=== PATIENT | male | born 1955 | race Caucasian/White ===

== ENCOUNTER 2019-04-04 08:26 | Day surgery (SDC) | payer MEDICARE, OTHER ==
[~2019-04-04] VITALS: Ht 170.2 cm; Wt 74.8 kg
[~2019-04-04 08:26] MED LIST: AMARYL4 MG PO; ASPIRIN EC81 MG PO; GLUCOPHAGE XR750 MG PO; GLUCOPHAGE1000 MG PO; GLUCOSAMINE-CH1 EA22 PO; JANUVIA100 MG PO; JANUVIA50 MG PO; LIPITOR20 MG GT; LISINOPRIL20 MG PO; MOEXIPRIL HCL15 MG PO; MOEXIPRIL HCTZ PO; MULTIVITAMINS1 EAC7 PO; NORVASC10 MG PO; PLETAL100 MG PO; PRILOSEC20 MG PO; ZOCOR40 MG PO
--- NOTE | 2019-04-04 09:47 | NUR ---
04/04/19 0947 Edith Jorge 0945 PATIENT ARRIVES TO PACU AWAKE. RESP EVEN AND UNLABORED. ROOM AIR SATS >94%. PATIENT REPOSITIONS SELF TO BACK.
--- NOTE | 2019-04-05 10:35 | OR ---
[facility] [address] [place], [place] [address] Signed DATE OF OPERATION: 04/04/2019 SURGEON: Leti Raygoza MD PREOPERATIVE DIAGNOSES: 1. Occasional gastroesophageal reflux symptoms with cervical dysphagia. 2. History of multiple hyperplastic polyps (last 2013). POSTOPERATIVE DIAGNOSIS: Hiatal hernia without obvious esophagitis. No sign of stricture. PROCEDURE: Esophagogastroduodenoscopy with biopsies. ANESTHESIA: Intravenous sedation, fentanyl 100 mcg, Versed 3 mg. INDICATION: A 63-year-old white man, a patient of Dr. Padron and well known to me from the past. He has undergone colonoscopy in the past including in 2013, at which time, he had multiple hyperplastic polyps. He has never had adenomatous polyps. He has no family history of colon cancer. He does, however, have occasional reflux symptoms and some cervical dysphagia on occasion. No hematemesis, however. He is admitted to undergo upper endoscopy on that basis. The risks of bleeding, infection, and perforation were reviewed with him. He understands and wished to proceed. FINDINGS: The stomach and duodenum were essentially normal, though he does have a moderate-sized hiatal hernia. Strangely, there was no sign of actual esophagitis. Biopsies were obtained nevertheless. The midesophagus did have a somewhat corrugated appearance, but not terribly typical of the eosinophilic esophagitis. Biopsies are pending. CLOtest was negative 15 minutes post procedure. DESCRIPTION OF PROCEDURE: The patient was brought to the endoscopy suite and given topical Hurricaine spray hypopharyngeal anesthesia and placed in lateral decubitus position. He was given intravenous sedation to the point of slurred speech and nystagmus with full cardiopulmonary monitoring. Electronically Signed By: LETI RAYGOZA MD 04/05/19 1035 PATIENT NAME: TEMITOPE WRIGHT OPERATIVE REPORT DATE OF : 51 REPORT #: [id number] PHYSICIAN: LETI RAYGOZA MD PCP: CLYDE PADRON MD REPORT IS CONFIDENTIAL AND NOT TO BE RELEASED WITHOUT AUTHORIZATION [facility] [address] [place], [place] [address] Signed A bite block was placed. An Olympus video upper endoscope passed in the hypopharynx. The vocal cords appeared normal, though the area in question was somewhat narrow and a bit congested. The scope was then advanced to the esophagus throughout its length and appeared normal. Scope was passed to the stomach, which was insufflated with air. Rugal folds were normal as was the antrum. Pylorus was normal. Scope was passed through into the duodenum, which was normal. Biopsies were taken of the duodenum and the scope withdrawn to the antrum where biopsies were also taken for both MUNIRA and pathologic testing. Retroflexed view undertaken showed a hiatal hernia, moderate in size. The scope was straightened, withdrawn, and biopsies then taken of distal esophageal mucosa after narrow band imaging showed no sign of abnormality particularly. The scope was then withdrawn to the mid esophagus where similar biopsies were obtained and there was a somewhat corrugated appearance and although not diagnostic of the eosinophilic esophagitis, certainly a consideration given his symptoms. Careful withdrawal of scope showed no other abnormalities. Scope was removed. The patient was taken to recovery room in good condition. CONCLUDING DIAGNOSIS: Hiatal hernia without associated esophagitis, currently symptom free. PLAN: Expectant management as regards to his hiatal hernia at this time. If he should develop recurrent symptoms of cervical dysphagia or heartburn symptoms, consideration will be made for medical treatment. As regards to colonoscopy, repeat colonoscopy at 10-year interval (2023) is anticipated. Leti Raygoza MD JM/MODL /[id number] cc: Clyde Padron MD Copies: CLYDE PADRON MD Electronically Signed By: LETI RAYGOZA MD 04/05/19 1035 PATIENT NAME: TEMITOPE WRIGHT OPERATIVE REPORT DATE OF : 51 REPORT #: [id number] PHYSICIAN: LETI RAYGOZA MD PCP: CLYDE PADRON MD REPORT IS CONFIDENTIAL AND NOT TO BE RELEASED WITHOUT AUTHORIZATION [facility] [address] [facility] [place] [address] Signed ~ Electronically Signed By: LETI RAYGOZA MD 04/05/19 1035 PATIENT NAME: TEMITOPE WRIGHT OPERATIVE REPORT DATE OF : 51 REPORT #: [id number] PHYSICIAN: LETI RAYGOZA MD PCP: CLYDE PADRON MD REPORT IS CONFIDENTIAL AND NOT TO BE RELEASED WITHOUT AUTHORIZATION
--- NOTE | 2019-04-08 10:04 | PATH ---
[facility] [address] [place], [place] [address] Signed SPECIMEN(S): A DUODENAL NOS SPECIMEN(S): B ANTRUM/ANTRAL SPECIMEN(S): C LOWER ESOPHAGUS SPECIMEN(S): D MIDDLE ESOPHAGUS SPECIMEN SOURCE: A. DUODENAL NOS B. ANTRUM/ANTRAL C. LOWER ESOPHAGUS D. MIDDLE ESOPHAGUS CLINICAL HISTORY: Reflux. Postop: Hiatal hernia. MICROSCOPIC DESCRIPTION: Histologic sections of all submitted blocks are examined by light microscopy. These findings, together with the gross examination, support the pathologic diagnosis. FINAL PATHOLOGIC DIAGNOSIS: A. Duodenum, biopsy: - Duodenal mucosa with increased lamina propria chronic inflammation, pyloric gland hyperplasia, and reactive epithelial changes, consistent with duodenitis. - No Helicobacter organisms identified on HE stain. - Negative for dysplasia or malignancy. B. Stomach, antrum, biopsy: - Antral mucosa with mild chronic, inactive gastritis. - No Helicobacter organisms, see Comment. - Oxyntic mucosa with no histopathologic abnormality. C. Esophagus, lower, biopsy: - Squamous mucosa with reactive cellular changes, consistent with mild reflux esophagitis, see comment. - Negative for intestinal metaplasia, dysplasia, or malignancy. D. Esophagus, middle, biopsy: - Squamous mucosa with reactive cellular changes, consistent with mild reflux esophagitis, see comment. - Negative for intestinal metaplasia, dysplasia, or malignancy. COMMENT: An immunohistochemical stain (with appropriately staining controls) for H. PATIENT NAME: TEMITOPE WRIGHT PATHOLOGY DATE OF : 51 REPORT #: [id number] PHYSICIAN: [facility]O [facility] PCP: LEODAN JULIEN MD REPORT IS CONFIDENTIAL AND NOT TO BE RELEASED WITHOUT AUTHORIZATION [facility] [address] [place], [place] [address] Signed pylori was performed on the antral biopsy (specimen B) and is negative for Helicobacter organisms. Sections of the lower and middle esophageal biopsies are similar and demonstrate squamous mucosa with reactive cellular changes, few scattered intraepithelial lymphocytes, mucosal capillary dilation, and focal areas of basal cell hyperplasia. These findings can be seen in mild reflux esophagitis. No intestinal metaplasia, dysplasia, or malignancy is seen. NAL:cml:C2NR GROSS DESCRIPTION: Four specimens are received in four containers, labeled "BP." A. The specimen, labeled "BP, duodenal NOS," is received in formalin and consists of two fuentes-white soft tissue fragments ranging from 0.1-0.2 cm in greatest dimension. The specimen is entirely submitted in cassette (A1). B. The specimen, labeled "BP, antrum," is received in formalin and consists of two fuentes-white soft tissue fragments ranging from 0.1-0.2 cm in greatest dimension. The specimen is entirely submitted in cassette (B1). C. The specimen, labeled "BP, lower esophagus," is received in formalin and consists of three fuentes-white soft tissue fragments ranging from 0.1-0.2 cm in greatest dimension. The specimen is entirely submitted in cassette (C1). D. The specimen, labeled "BP, middle esophagus," is received in formalin and consists of two fuentes-white soft tissue fragments each measuring 0.2 cm in greatest dimension. The specimen is entirely submitted in cassette (D1). AR (under the direct supervision of a pathologist) The Gross Description was prepared using a voice recognition system. The report was reviewed for accuracy; however, sound-alike word errors, addition and/or deletions may occur. If there is any question about this report, please contact Client Services. ADDITIONAL NOTES: Immunohistochemical and/or in situ hybridization studies were performed on this case with the appropriate positive controls that react as expected. This test was developed and its performance characteristics determined by [facility]. It has not been cleared or approved by the U.S. Food and Drug Administration. The FDA has determined that such clearance or approval is not PATIENT NAME: TEMITOPE WRIGHT PATHOLOGY DATE OF : 51 REPORT #: [id number] PHYSICIAN: [facility] PATH[facility] PCP: LEODAN JULIEN MD REPORT IS CONFIDENTIAL AND NOT TO BE RELEASED WITHOUT AUTHORIZATION [facility] [address] [place], [place] [address] Signed necessary. This test is used for clinical purposes. It should not be regarded as investigational or for research. [facility] is certified under the Clinical Laboratory Improvement Amendments of 1988 (CLIA) as qualified to perform high complexity clinical laboratory testing. PERFORMING LABORATORY: The technical component was performed by [facility], [address] [place] [id number] (Paper Twister: Christy Sharma MD; CLIA# [id number]). Professional interpretation was performed by [facility], [address] [address] (Paper Twister: Lucio Santacruz MD; CLIA# [id number]). Diagnostician: Bianka Stevenson MD Pathologist Electronically Signed 04/08/2019 Copies: ~ PATIENT NAME: TEMITOPE WRIGHT PATHOLOGY DATE OF : 51 REPORT #: [id number] PHYSICIAN: NEGRO PHILLIPS PCP: LEODAN JULIEN MD REPORT IS CONFIDENTIAL AND NOT TO BE RELEASED WITHOUT AUTHORIZATION
== END 2019-04-04 10:10 | disposition home or self-care (01) ==
LOC: OPS 08:26 → DS 08:26 → OPS 09:30 → DS 10:30
PROVIDERS: Surgery
PROC: 0DB78ZX Excision of Stomach, Pylorus, Via Natural or Artificial Opening Endoscopic, Diagnostic (ICD-10-PCS; 2019-04-04)
PROC: 0DB38ZX Excision of Lower Esophagus, Via Natural or Artificial Opening Endoscopic, Diagnostic (ICD-10-PCS; 2019-04-04)
PROC: 0DB28ZX Excision of Middle Esophagus, Via Natural or Artificial Opening Endoscopic, Diagnostic (ICD-10-PCS; 2019-04-04)
PROC: 0DB98ZX Excision of Duodenum, Via Natural or Artificial Opening Endoscopic, Diagnostic (ICD-10-PCS; principal; 2019-04-04 09:30)
DX: K29.50 Unspecified chronic gastritis without bleeding (principal); K29.80 Duodenitis without bleeding; K44.9 Diaphragmatic hernia without obstruction or gangrene; E11.9 Type 2 diabetes mellitus without complications; I10 Essential (primary) hypertension; K57.30 Diverticulosis of large intestine without perforation or abscess without bleeding; Z86.010 Personal history of colon polyps
CPT/HCPCS: G0500; J2250; J3010; J7120

== ENCOUNTER 2022-02-02 12:55 | Day surgery (SDC) | payer MEDICARE, OTHER ==
[~2022-02-02] VITALS: Ht 170.2 cm; Wt 75.7 kg
[2022-02-02] MEDS ORDERED: AVAPRO75 MG PO (13:25)
--- NOTE | 2022-02-02 16:00 | NUR ---
02/02/22 1600 Kathleen Lopez 1553 PATIENT INTO PACU. REPORT RECIEVED FROM LALIT AVILA. PATIENT IS ALERT AND ORIENTED. PATIENT DENIES ANY PAIN OR NAUSEA. BREATHING EQUAL AND UNLABORED. OXYGEN SATURATIONS ABOVE 95% ON 3 LITERS VIA NASAL CANNULA. IVF INFUSING. 1600 PATIENT ALERT AND ORIENTED. PATIENT BREATHING EQUAL AND UNLABORED. OXYGEN SATURATIONS ABOVE 95% ON ROOM AIR. PATIENT DENIES ANY PAIN OR NAUSEA. PATIENT HEAD OF BED ELEVATED. PATIENT TALKING TO THIS RN.
--- NOTE | 2022-02-04 14:44 | OR ---
[facility] [address] [place], [place] [address] Signed DATE OF OPERATION: 02/02/2022 SURGEON: Leti Raygoza MD PREOPERATIVE DIAGNOSES: 1. History of sigmoid resection for diverticular disease in 1997. 2. Known history of diverticulosis. POSTOPERATIVE DIAGNOSES: Diverticula. No evidence of polyps or cancer, widely patent anastomosis. PROCEDURE: Total colonoscopy to cecum with intubation of ileum. ANESTHESIA: Intravenous sedation; fentanyl 100 mcg and Versed 5 mg. INDICATION: This 66-year-old white man is a patient Dr. Padron and well known to me from the past having undergone sigmoid colectomy for diverticular disease in 1997. He underwent colonoscopy in 2010, which showed six hyperplastic polyps. His last colonoscopy was in 2013, at which time a hyperplastic polyp was excised. He is noted to have diverticulosis at that time as well. He is symptom-free at this time and is here for surveillance colonoscopy. He understands the risk of bleeding, infection, and perforation and wished to proceed. FINDINGS: The prep was excellent. Complete colonoscopy was undertaken to the cecum without question, easy intubation of the ileum was noted as well. The colon had numerous diverticula of the left colon, but no evidence of stricture or neoplasm related to the prior sigmoid resection and coloproctostomy. There were no findings of concern otherwise. DESCRIPTION OF PROCEDURE: The patient was brought to the endoscopy suite and placed in lateral decubitus position, given intravenous sedation to the point of slurred speech and nystagmus. Digital rectal examination was normal. An Olympus video colonoscope was passed in the rectum and manipulated throughout the colon ultimately intubating the cecum and easily intubating the ileum. The ileum was Electronically Signed By: LETI RAYGOZA MD 02/04/22 1444 PATIENT NAME: TEMITOPE WRIGHT OPERATIVE REPORT DATE OF : 51 REPORT #: [id number] PHYSICIAN: LETI RAYGOZA MD PCP: CLYDE PADRON MD REPORT IS CONFIDENTIAL AND NOT TO BE RELEASED WITHOUT AUTHORIZATION [facility] [address] [place], [place] [address] Signed normal. Scope was withdrawn. Cecum appeared normal as well. The scope was withdrawn and examination throughout showed only diverticular changes of the transverse and remaining left colon. The coloproctostomy anastomosis was widely patent. There is no evidence of stricture. The scope was removed and the patient was taken to the recovery room in good condition. CONCLUDING DIAGNOSIS: 1. Normal colonic anastomosis from prior sigmoid resection. 2. Residual diverticula left colon otherwise normal. PLAN: We would recommend repeat colonoscopy in 10 years, sooner if clinically indicated. He will return to the ongoing care of Dr. Padron. MD FÉLIX Rogers/JON /[id number] cc: Clyde Padron MD Copies: CLYDE PADRON MD ~ Electronically Signed By: LETI RAYGOZA MD 02/04/22 1444 PATIENT NAME: TEMITOPE WRIGHT OPERATIVE REPORT DATE OF : 51 REPORT #: [id number] PHYSICIAN: LETI RAYGOZA MD PCP: CLYDE PADRON MD REPORT IS CONFIDENTIAL AND NOT TO BE RELEASED WITHOUT AUTHORIZATION
== END 2022-02-02 16:25 | disposition home or self-care (01) ==
LOC: OPS 12:55 → DS 12:55 → OPS 14:00
PROVIDERS: ATTEND Surgery
PROC: 0DJD8ZZ Inspection of Lower Intestinal Tract, Via Natural or Artificial Opening Endoscopic (ICD-10-PCS; principal; 2022-02-02 14:00)
DX: Z12.11 Encounter for screening for malignant neoplasm of colon (principal); K57.30 Diverticulosis of large intestine without perforation or abscess without bleeding; Z86.010 Personal history of colon polyps; Z90.49 Acquired absence of other specified parts of digestive tract; I10 Essential (primary) hypertension; E11.9 Type 2 diabetes mellitus without complications; E78.5 Hyperlipidemia, unspecified; Z79.84 Long term (current) use of oral hypoglycemic drugs; Z79.82 Long term (current) use of aspirin
CPT/HCPCS: 99153; G0500; J2250; J3010; J7121